=== PATIENT | male | born 1965 | race Caucasian/White ===

== ENCOUNTER 2016-12-07 03:43 | Inpatient (IN) | payer BC ==
[~2016-12-07] VITALS: Ht 175.3 cm; Wt 111.2 kg
[2016-12-07 04:43] LABS: CALCIUM 8.4 mg/dL (8.5-10.1); CARBON DIOXIDE 25.7 mmol/L (21-32); CHLORIDE SERUM 104 mmol/L (98-107); CREATININE SERUM 0.9 mg/dL (0.7-1.3); GFR1 > 60 mL/min; GLUCOSE SERUM 103 mg/dL (74-106); POTASSIUM SERUM 3.5 mmol/L (3.5-5.1); SODIUM SERUM 139 mmol/L (136-145)
[2016-12-07 04:44] LABS: BASOPHIL % 0.3 % (0-2); PLATELET COUNT 199 x10^3mcL (130-400); RED CELL DISTRIBUTION WIDTH 12.8 % (11.5-14.5)
[2016-12-07 04:50] LABS: ALBUMIN 3.6 g/dL (3.4-5.0); ALKALINE PHOSPHATASE 78 U/L (46-116); ALT/SGPT 38 U/L (16-63); AST/SGOT 23 U/L (15-37); BILIRUBIN TOTAL 0.51 mg/dL (0.20-1.00); TOTAL PROTEIN, SERUM 7.2 g/dL (6.4-8.2)
[2016-12-07 06:46] LABS: CHOLESTEROL/HDL RATIO 5.8; MAGNESIUM 2.1 mg/dL (1.8-2.4); PHOSPHOROUS 3.9 mg/dL (2.5-4.9)
[2016-12-07 06:58] LABS: FREE T4 1.02 ng/dL (0.76-1.46); FREE THYROXINE INDEX 3.3 ug/dL (1.4-4.5); T4(THYROXINE) 8.8 ug/dL (4.7-13.3)
[2016-12-07 08:08] LABS: T3 TOTAL 1.21 ng/mL
[2016-12-07 10:40] VITALS: BP 124/75
[2016-12-07 14:10] VITALS: BP 110/63
[2016-12-07 17:34] VITALS: BP 102/65
[2016-12-07 18:54] LABS: microscopic required? NO
[2016-12-07 19:20] LABS: urine erythrocyte NEGATIVE (NEGATIVE)
[2016-12-07 19:40] LABS: AMPHETAMINE QUAL UR NONE DETECTED (NEG <=1000)
[2016-12-07 20:54] VITALS: BP 102/58
[2016-12-08] VITALS (14 sets, daily range): BP systolic 95–137; BP diastolic 61–88; Ht 175.3 cm; Wt 111.2 kg
[2016-12-08 06:34] LABS: CALCIUM 8.3 mg/dL (8.5-10.1); CARBON DIOXIDE 29.1 mmol/L (21-32); CHLORIDE SERUM 108 mmol/L (98-107); CREATININE SERUM 0.9 mg/dL (0.7-1.3); GFR1 > 60 mL/min; GLUCOSE SERUM 97 mg/dL (74-106); MAGNESIUM 1.9 mg/dL (1.8-2.4); PHOSPHOROUS 3.3 mg/dL (2.5-4.9); POTASSIUM SERUM 3.9 mmol/L (3.5-5.1); SODIUM SERUM 142 mmol/L (136-145)
[2016-12-08 06:44] LABS: BASOPHIL % 0.6 % (0-2); PLATELET COUNT 183 x10^3mcL (130-400); RED CELL DISTRIBUTION WIDTH 12.9 % (11.5-14.5)
[2016-12-09 06:24] VITALS: BP 90/64
[2016-12-09 06:59] VITALS: BP 95/56
[2016-12-09] MEDS ORDERED: TOPROL XL25 MG PO (07:21)
[2016-12-09 09:06] VITALS: BP 95/56
[2016-12-09 09:12] VITALS: BP 113/64
[2016-12-09] MEDS ORDERED: LIPITOR80 MG PO (09:18)
[2016-12-09] MEDS ORDERED: ZES10 PO (09:18)
[2016-12-09] MEDS ORDERED: ECO81 PO (09:18)
[2016-12-09] MEDS ORDERED: CLOPIDOGREL75 M1 PO (09:18)
[2016-12-09 09:47] LABS: BASOPHIL % 0.2 % (0-2); PLATELET COUNT 176 x10^3mcL (130-400); RED CELL DISTRIBUTION WIDTH 12.9 % (11.5-14.5)
[2016-12-09 10:02] LABS: CALCIUM 8.2 mg/dL (8.5-10.1); CARBON DIOXIDE 29.2 mmol/L (21-32); CHLORIDE SERUM 106 mmol/L (98-107); GFR1 > 60 mL/min; GLUCOSE SERUM 145 mg/dL (74-106); PHOSPHOROUS 2.2 mg/dL (2.5-4.9); POTASSIUM SERUM 3.5 mmol/L (3.5-5.1); SODIUM SERUM 140 mmol/L (136-145)
== END 2016-12-09 11:03 | disposition home or self-care (01) | DRG 287 ==
LOC: ED 03:43 → DU 06:07
PROVIDERS: Emergency Medicine; Internal Medicine Interventional Cardiology; ADMIT Family Medicine
PROC: B2151ZZ Fluoroscopy of Left Heart using Low Osmolar Contrast (ICD-10-PCS; 2016-12-08)
PROC: B2111ZZ Fluoroscopy of Multiple Coronary Arteries using Low Osmolar Contrast (ICD-10-PCS; 2016-12-08)
PROC: B2181ZZ Fluoroscopy of Left Internal Mammary Bypass Graft using Low Osmolar Contrast (ICD-10-PCS; 2016-12-08)
PROC: 4A023N7 Measurement of Cardiac Sampling and Pressure, Left Heart, Percutaneous Approach (ICD-10-PCS; principal; 2016-12-08 08:30)
DX: I25.10 Atherosclerotic heart disease of native coronary artery without angina pectoris (principal); E78.5 Hyperlipidemia, unspecified; E02 Subclinical iodine-deficiency hypothyroidism; I25.2 Old myocardial infarction; Z98.61 Coronary angioplasty status; Z95.1 Presence of aortocoronary bypass graft; F17.210 Nicotine dependence, cigarettes, uncomplicated; E66.9 Obesity, unspecified; Z68.36 Body mass index [BMI] 36.0-36.9, adult
CPT/HCPCS: CLHCL; 83880; 84439; C1760; C1769; C1894; J1644; J2001; J2250; J3010; J7030; J7040; J7050; Q0092; Q9967